=== PATIENT | male | born 1990 | race Caucasian/White ===

== ENCOUNTER 2017-10-02 13:57 | Emergency (ER) | payer OTHER ==
--- NOTE | 2017-10-02 15:35 | UC ---
Bite Injury/Animal HPI - HPI Summary HPI Summary: bats in BR twice in past week or so no known bite ? Last Td - History of Current Complaint Chief Complaint: UCGeneralIllness Stated Complaint: POST EXPOSURE RABIES VACINATION Time Seen by Provider: 10/02/17 15:33 Hx Obtained From: Patient Pain Intensity: 0 Pain Scale Used: 0-10 Numeric Onset/Duration: Other Type of Bite: Animal Has Animal Been Immunized?: N/A Animal Available for Observation: No Animal Control Notified: Yes - Allergies/Home Medications Allergies/Adverse Reactions: Allergies Allergy/AdvReac Type Severity Reaction Status Date / Time No Known Allergies Allergy Verified 10/02/17 14:14 Home Medications: Home Medications Albuterol HFA INHALER* [Ventolin HFA Inhaler*] 1 puff PO PRN 10/02/17 [History] Fexofenadine (NF) [Kathya 180 (NF)] 180 mg PO PRN 10/02/17 [History] PMH/Surg Hx/FS Hx/Imm Hx Previously Healthy: Yes Respiratory History: Asthma - Surgical History Surgical History: None - Family History Known Family History: Positive: Cardiac Disease, Hypertension, Diabetes - Social History Alcohol Use: Occasionally Substance Use Type: None Smoking Status (MU): Never Smoked Tobacco Review of Systems Constitutional: Negative Skin: Negative Eyes: Negative ENT: Negative Respiratory: Negative Cardiovascular: Negative Gastrointestinal: Negative Genitourinary: Negative Motor: Negative Neurovascular: Negative Musculoskeletal: Negative Neurological: Negative Psychological: Negative Is Patient Immunocompromised?: No All Other Systems Reviewed And Are Negative: Yes Physical Exam Triage Information Reviewed: Yes Appearance: Well-Appearing, No Pain Distress, Well-Nourished Vital Signs: Initial Vital Signs Temp 97.2 F 10/02/17 14:16 Pulse 68 10/02/17 14:16 Resp 16 10/02/17 14:16 BP 154/91 10/02/17 14:16 Pulse Ox 99 10/02/17 14:16 Vital Signs Reviewed: Yes Eyes: Positive: Conjunctiva Clear ENT: Positive: Hearing grossly normal. Negative: Trismus, Muffled voice, Hoarse voice Neck: Positive: Supple, Nontender Respiratory: Positive: Lungs clear, Normal breath sounds, No respiratory distress, No accessory muscle use Cardiovascular: Positive: RRR, No Murmur Musculoskeletal: Positive: ROM Intact, No Edema Neurological: Positive: Alert Psychological Exam: Normal Skin Exam: Normal Bite Injury Course/Dx - Differential Dx/Diagnosis Provider Diagnoses: rabies prophylaxis. bat exposure. high blood pressure without dx of hypertension Discharge - Discharge Plan Condition: Stable Disposition: HOME Patient Education Materials: Rabies Immune Globulin (By injection), Rabies Vaccine (ED) Referrals: Juan Szymanski MD [Primary Care Provider] - Additional Instructions: return as directed
[2017-10-02] MEDS ORDERED: Rabies VIRUS VACCINE (Imovax)* 2.5 UNIT/ML 1 ML IM ONE (15:45)
[2017-10-02] MEDS ORDERED: Tetan/Diph/Pertus SYR(Tdap)* 0.5 ML SYR(BOOSTRIX) use SYR IM ONE (15:45)
[2017-10-02] MEDS ORDERED: Rabies Immune Globulin 10 ML* 150 UNIT/ML VIAL IM ONE (15:55)
[2017-10-02 18:00] VITALS: BP 138/82
== END 2017-10-02 17:20 | disposition home or self-care (01) ==
LOC: UCEAST 13:57
DX: Z20.3 Contact with and (suspected) exposure to rabies (principal); R03.0 Elevated blood-pressure reading, without diagnosis of hypertension
CPT/HCPCS: 90375; 90471; 90472; 90715; 96372; 99211; G0463

== ENCOUNTER 2017-10-05 07:22 | Emergency (ER) | payer OTHER ==
[2017-10-05 07:39] VITALS: BP 128/78
[2017-10-05] MEDS ORDERED: Rabies VIRUS VACCINE (Imovax)* 2.5 UNIT/ML 1 ML IM ONE (07:47)
--- NOTE | 2017-10-05 07:57 | UC ---
General HPI - HPI Summary HPI Summary: Is coming for second dose of rabies vaccine. States he found bats in bedroom on October 01 and again on Oct 03, 2017. Denies any side effects. No other complaints - History of Current Complaint Chief Complaint: UCBiteInjury Stated Complaint: RABIES EXPOSURE Time Seen by Provider: 10/05/17 07:47 Hx Obtained From: Patient Onset/Duration: Sudden Onset Onset Severity: Mild Current Severity: Mild Pain Intensity: 0 - Allergy/Home Medications Allergies/Adverse Reactions: Allergies Allergy/AdvReac Type Severity Reaction Status Date / Time No Known Allergies Allergy Verified 10/05/17 07:39 Home Medications: Home Medications Albuterol HFA INHALER* [Ventolin HFA Inhaler*] 2 puff INH Q4H PRN 10/05/17 [ History Confirmed 10/05/17] Fexofenadine (NF) [Kathya 180 (NF)] 180 mg PO DAILY 10/05/17 [History Confirmed 10/05/17] PMH/Surg Hx/FS Hx/Imm Hx Previously Healthy: Yes - Surgical History Surgical History: None - Family History Known Family History: Positive: Cardiac Disease, Hypertension, Diabetes - Social History Alcohol Use: Occasionally Substance Use Type: None Smoking Status (MU): Never Smoked Tobacco Review of Systems Constitutional: Negative All Other Systems Reviewed And Are Negative: Yes Physical Exam Triage Information Reviewed: Yes Appearance: Well-Appearing Vital Signs: Initial Vital Signs Temp 97.0 F 10/05/17 07:34 Pulse 63 10/05/17 07:34 Resp 16 10/05/17 07:34 BP 128/78 10/05/17 07:34 Pulse Ox 98 10/05/17 07:34 Vital Signs Reviewed: Yes Eye Exam: Normal ENT Exam: Normal Neck exam: Normal Respiratory Exam: Normal Cardiovascular Exam: Normal Skin Exam: Normal Course/Dx - Course Course Of Treatment: Imovax dose 2 given. Information ALANA given for subsequent rabies vaccination - Differential Dx - Multi-Symptom Provider Diagnoses: History of rabies exposure. Imovax dose #2 Discharge - Discharge Plan Condition: Stable Disposition: HOME Patient Education Materials: Rabies Vaccine (ED) Referrals: Juan Szymanski MD [Primary Care Provider] -
== END 2017-10-05 08:06 | disposition home or self-care (01) ==
LOC: UCEAST 07:22
DX: Z20.3 Contact with and (suspected) exposure to rabies (principal); Z29.14 Encounter for prophylactic rabies immune globulin
CPT/HCPCS: 99211; G0463

== ENCOUNTER 2017-10-09 07:29 | Emergency (ER) | payer OTHER ==
[2017-10-09 07:43] VITALS: BP 152/63
[2017-10-09] MEDS ORDERED: Rabies VIRUS VACCINE (Imovax)* 2.5 UNIT/ML 1 ML IM ONE (08:11)
--- NOTE | 2017-10-09 08:15 | UC ---
Chalo Figueroa Angela, scribed for Britney Leal MD on 10/09/17 at 0813 . General HPI - HPI Summary HPI Summary: This pt is a 27 y/o male presenting to [facility] for a third dose of rabies vaccine, Day #7. Pt reports he was exposed to a bat 1 weeks ago but he states it is unknown if he was given bitten. Pt is working with [employer]. Denies fever, nausea, vomiting, or any other complaints. Pt has had local tenderness related to previous vaccines, but no systemic complaints. Pt without questions today. NKDA. Patients medication reviewed this visit. - History of Current Complaint Chief Complaint: UCBiteInjury Stated Complaint: RABIES EXPOSURE Hx Obtained From: Patient Onset/Duration: Lasting Weeks - was exposed to bat 2 weeks ago Current Severity: None Pain Intensity: 0 Aggravating: nothing Alleviating: nothing Associated Signs & Symptoms: Positive: Other - denies any complaints. Negative : Nausea, Vomiting - Allergy/Home Medications Allergies/Adverse Reactions: Allergies Allergy/AdvReac Type Severity Reaction Status Date / Time No Known Allergies Allergy Verified 10/09/17 07:36 PMH/Surg Hx/FS Hx/Imm Hx Previously Healthy: Yes Other Endocrine History: DENIES: diabetes Other Cardiovascular History: DENIES: hypertension - Surgical History Surgical History: None - Family History Known Family History: Positive: Cardiac Disease, Hypertension, Diabetes - Social History Occupation: Employed Full-time - radio station audio engineer Alcohol Use: Occasionally Substance Use Type: None Smoking Status (MU): Never Smoked Tobacco - Immunization History Most Recent Tetanus Shot: 10/02/17 Review of Systems Constitutional: Negative Skin: Negative Eyes: Negative ENT: Negative Respiratory: Negative Cardiovascular: Negative Gastrointestinal: Negative Genitourinary: Negative Motor: Negative Neurovascular: Negative Musculoskeletal: Negative Neurological: Negative Psychological: Negative Is Patient Immunocompromised?: No All Other Systems Reviewed And Are Negative: Yes Physical Exam Triage Information Reviewed: Yes Appearance: Well-Appearing, No Pain Distress, Well-Nourished Vital Signs: Initial Vital Signs Temp 98.1 F 10/09/17 07:37 Pulse 62 10/09/17 07:37 Resp 16 10/09/17 07:37 BP 152/63 10/09/17 07:37 Pulse Ox 97 10/09/17 07:37 Eye Exam: Normal Eyes: Positive: Conjunctiva Clear ENT Exam: Normal ENT: Positive: Normal ENT inspection, Hearing grossly normal, Pharynx normal, TMs normal Dental Exam: Normal Neck exam: Normal Neck: Positive: Supple, Nontender, No Lymphadenopathy Respiratory Exam: Normal Respiratory: Positive: Chest non-tender, Lungs clear, Normal breath sounds, No respiratory distress, No accessory muscle use Cardiovascular Exam: Normal Cardiovascular: Positive: RRR, No Murmur, Pulses Normal Abdominal Exam: Normal Abdomen Description: Positive: Nontender, No Organomegaly Bowel Sounds: Positive: Present Musculoskeletal Exam: Normal Musculoskeletal: Positive: Strength Intact Neurological Exam: Normal Neurological: Positive: Alert Psychological Exam: Normal Psychological: Positive: Normal Response To Family Skin Exam: Normal Course/Dx - Course Course Of Treatment: Pt presents for Day #7 rabies vaccine after a bat exposure. Pt with local discomfort, but no other adverse reactions to vaccine so far. Will give vaccine today. Pt to return Day #14. Pt without other quesitons or concerns - Differential Dx - Multi-Symptom Provider Diagnoses: rabies vaccine day #7 Discharge - Discharge Plan Condition: Stable Disposition: HOME Patient Education Materials: Rabies Vaccine (ED) Referrals: Juan Szymanski MD [Primary Care Provider] - Additional Instructions: You received your rabies vaccine #3 today. You are due for your next injection on 10/16/2017 You may develop some discomfort at the site of injection. This is normal Okay to take motrin or tylenol as needed for discomfort Contact your doctor, return here,or go to the emergency department with questions or concerns The documentation as recorded by the Chalo parker Angela accurately reflects the service I personally performed and the decisions made by , Britney Leal MD.
== END 2017-10-09 08:25 | disposition home or self-care (01) ==
LOC: UCEAST 07:29
DX: Z20.3 Contact with and (suspected) exposure to rabies (principal); Z29.14 Encounter for prophylactic rabies immune globulin
CPT/HCPCS: 90471; 99211; G0463

== ENCOUNTER 2017-10-16 07:11 | Emergency (ER) | payer OTHER ==
[2017-10-16] MEDS ORDERED: Rabies VIRUS VACCINE (Imovax)* 2.5 UNIT/ML 1 ML IM ONE (07:22)
[2017-10-16 07:24] VITALS: BP 139/75
--- NOTE | 2017-10-16 07:42 | UC ---
UC General HPI - HPI Summary HPI Summary: BAT EXPOSURE ABOUT 3 WEEKS AGO.WOKE UP WITH BAT IN ROOM. NO OBVIOUS BITE. PT HERE FOR 4TH RABIES VACCINE. HAS TOLERATED VACCINATIONS WELL. DENIES INJECTION SITE REACTION, NAUSEA, FEVER OR ANY OTHER SYMPTOMS. - History of Current Complaint Stated Complaint: RABIES POST EXPOSURE Time Seen by Provider: 10/16/17 07:17 Hx Obtained From: Patient Current Severity: None Pain Intensity: 0 - Allergy/Home Medications Allergies/Adverse Reactions: Allergies Allergy/AdvReac Type Severity Reaction Status Date / Time No Known Allergies Allergy Verified 10/16/17 07:24 PMH/Surg Hx/FS Hx/Imm Hx Respiratory History: Asthma - Surgical History Surgical History: None - Family History Known Family History: Positive: Cardiac Disease, Hypertension, Diabetes - Social History Alcohol Use: Occasionally Substance Use Type: None Smoking Status (MU): Never Smoked Tobacco - Immunization History Most Recent Tetanus Shot: 10/02/17 Review of Systems Constitutional: Negative Skin: Negative Respiratory: Negative Cardiovascular: Negative Gastrointestinal: Negative All Other Systems Reviewed And Are Negative: Yes Physical Exam Triage Information Reviewed: Yes Appearance: Well-Appearing, No Pain Distress, Well-Nourished Vital Signs: Initial Vital Signs Temp 95.9 F 10/16/17 07:21 Pulse 81 10/16/17 07:21 Resp 20 10/16/17 07:21 BP 139/75 10/16/17 07:21 Pulse Ox 96 10/16/17 07:21 Vital Signs Reviewed: Yes Eyes: Positive: Conjunctiva Clear ENT: Positive: Hearing grossly normal Neck: Positive: Supple Respiratory: Positive: No respiratory distress, No accessory muscle use Cardiovascular: Positive: Pulses Normal Abdomen Description: Positive: Soft Musculoskeletal: Positive: No Edema Neurological: Positive: Alert Psychological: Positive: Age Appropriate Behavior Skin: Negative: rashes Course/Dx - Differential Dx - Multi-Symptom Provider Diagnoses: RABIES VACCINATION Discharge - Discharge Plan Condition: Stable Disposition: HOME Patient Education Materials: Rabies Vaccine (ED) Referrals: Juan Szymanski MD [Primary Care Provider] - If Needed Additional Instructions: YOU RECEIVED YOUR 4TH AND FINAL DOSE OF THE RABIES VACCINATION SERIES TODAY. FOLLOW-UP WITH YOUR PCP OR CALL THE HEALTH DEPARTMENT IF YOU HAVE ANY QUESTIONS OR CONCERNS.
== END 2017-10-16 07:47 | disposition home or self-care (01) ==
LOC: UCEAST 07:11
DX: Z20.3 Contact with and (suspected) exposure to rabies (principal); Z23 Encounter for immunization; J45.909 Unspecified asthma, uncomplicated
CPT/HCPCS: 90471; 99211; G0463

== ENCOUNTER 2018-08-19 10:40 | Emergency (ER) | payer OTHER ==
[2018-08-19 10:54] VITALS: BP 139/84
--- NOTE | 2018-08-19 12:22 | UC ---
Head Injury HPI - HPI Summary HPI Summary: 28 y/o male presents to the urgent care c/o mild RICHMOND and light and sound sensitivity s/p head on collision w/ another player while playing Hockey last Saturday night 08/17/2018. Pt denies LOC when it happened, he finished playing since game was about to end. Yesterday he develops mild dizziness which resolved today. He has taking Ibuprofen 400mg PO to alleviate RICHMOND, but when he starts working in the computer RICHMOND is triggered. Today he feels sleepy. RICHMOND today is dull 3/10 localized in frontal area. Pt denies neck pain, SOB, chest pain, abdominal pain, N/V/D. - History Of Current Complaint Chief Complaint: UCHeadInjury Stated Complaint: HEAD INJURY Time Seen by Provider: 08/19/18 12:08 Hx Obtained From: Patient Onset/Duration: Sudden Onset, Lasting Days - 2 days, Still Present Severity Currently: Moderate Severity Initially: Mild Pain Intensity: 3 Pain Scale Used: 0-10 Numeric Character: Dull Aggravating Factor(s): Other - computer Alleviating Factor(s): Other - ibuprofen Associated Signs And Symptoms: Positive: Negative. Negative: LOC (Time In Secs. /Mins/Hrs), LOC Duration Unknown, Confusion, Memory Loss, Seizure, Epistaxis, Dental Malocclusion, Neck Pain, Nausea, Vomiting - Risk Factors SDH Risk Factor: Negative - Allergies/Home Medications Allergies/Adverse Reactions: Allergies Allergy/AdvReac Type Severity Reaction Status Date / Time No Known Allergies Allergy Verified 10/16/17 07:24 Home Medications: Home Medications Sertraline HCl [Zoloft] 50 mg PO DAILY WITH MEAL 08/19/18 [History Confirmed ] PMH/Surg Hx/FS Hx/Imm Hx Previously Healthy: Yes Respiratory History: Asthma - Surgical History Surgical History: None Surgery Procedure, Year, and Place: denies - Family History Known Family History: Positive: Cardiac Disease, Hypertension, Diabetes - Social History Occupation: Employed Full-time Lives: With Family Alcohol Use: Weekly Substance Use Type: None Smoking Status (MU): Never Smoked Tobacco - Immunization History Most Recent Tetanus Shot: 10/02/17 Review of Systems All Other Systems Reviewed And Are Negative: Yes Constitutional: Positive: Negative Skin: Positive: Negative Eyes: Positive: Photophobia - sesitivity to light and sound ENT: Positive: Negative Respiratory: Positive: Negative Cardiovascular: Positive: Negative Gastrointestinal: Positive: Negative Genitourinary: Positive: Negative Motor: Positive: Negative Neurovascular: Positive: Negative Musculoskeletal: Positive: Negative Neurological: Positive: Headache - mild Psychological: Positive: Negative Is Patient Immunocompromised?: No Physical Exam - Summary Physical Exam Summary: Vital signs: reviewed General: wel developed, well nourished male sitting in the examining table w/o any apparent pain or respiratory distress. Skin: [place], warm and dry, no surface trauma. HEENT: -Head: atraumatic, no palpable deformities, -Eyes: PERRLA and EOMI, no periorbital ecchymosis. -Ears: TMs clear, no hemotympanum or Battles sign. -Nose/Face: atraumatic, no septal hematoma. Facial bones symmetric, NT to palpation and stable with attempt at manipulation. -Mouth/Throat: no intraoral trauma, Teeth and mandible are intact. Neck: no point tenderness, step-off or deformity to firm palpation of the cervical spine at the midline. No spasm or paraspinal muscle tenderness. Trachea midline. Carotids equal. No masses. FROM without limitation or pain. Chest: no surface trauma or asymmetry. NT without crepitus or deformity. Normal tidal volume. CTA bilaterally. . Heart: RRR, no murmur, rub, or gallop. All peripheral pulses are intact and equal. Abd: nondistended without abrasions or ecchymosis. Bowel sounds are active. NT , guarding or rebound. No masses. Good femoral pulses. Back: no contusions, ecchymosis, or abrasions are noted, NT, without step-off or deformity to firm palpation of the thoracic and lumbar spine. Rectal: Normal tone. No rectal wall tenderness or mass. Stool is brown and heme negative (if applicable) Extrems: no surface trauma. FROM. Distal motor, neuromuscular supply is intact. Neuro: A&O x4, GCS 15, CN II-XII grossly intact. Motor and sensory exam nonfocal. Reflexes are symmetric. Speech is clear and gait steady. Triage Information Reviewed: Yes Vital Signs: Initial Vital Signs Temp 97.3 F 08/19/18 10:49 Pulse 53 08/19/18 10:49 Resp 18 08/19/18 10:49 BP 139/84 12/18/18 10:49 Pulse Ox 100 08/19/18 10:49 Head Injury Course/Dx - Course Course Of Treatment: 28 y/o male presents to the urgent care c/o mild RICHMOND and light and sound sensitivity s/p head on collision w/ another player while playing Hockey last Saturday night 08/17/2018. Pt denies LOC when it happened, he finished playing since game was about to end. Yesterday he develops mild dizziness which resolved today. He has taking Ibuprofen 400mg PO to alleviate RICHMOND , but when he starts working in the computer RICHMOND is triggered. Today he feels sleepy. RICHMOND today is dull 3/10 localized in frontal area. Pt denies neck pain, SOB, chest pain, abdominal pain, N/V/D. Hx obtained. PE: WNL,A&O x4, GCS 15, CN II-XII grossly intact. Motor and sensory exam nonfocal. Reflexes are symmetric. Speech is clear and gait steady. no AMS or hematoma observed on exam. Neurologic exam is WNL. Pt is playful and interacts normally w/ provider. According to [facility] criteria there is not recommendation for brain CT. Pt explained criteria and he agrees. Pt advised to take Tylenol PO and close observation and brain rest as directed below. He was advised to f/u w/ his PCP mild RICHMOND, and photosensitivity persist for further evaluation and treatment. D/ C instructions explained. Pt understood and agreed w/ plan of care. Pt left clinic hemodynamically stable, ambulating and A&OX4 - Differential Dx/Diagnosis Differential Diagnosis/HQI/PQRI: Cerebral Contusion, Cervical Sprain, Contusion , Hematoma, Orbital Fracture, Skull Fracture Provider Diagnosis: Head contusion Discharge - Sign-Out/Discharge Documenting (check all that apply): Patient Departure - d/c home All imaging exams completed and their final reports reviewed: No Studies - Discharge Plan Condition: Stable Disposition: HOME Patient Education Materials: Acute Headache (ED), Post Concussion Syndrome (ED) Forms: *Work Release Referrals: Juan Szymanski MD [Primary Care Provider] - 1 Week Additional Instructions: 1-Please take Tylenol PO q6-8hrs prn as instructed after meals to alleviate Headache. Increase fluid intake, eat well, rest and avoid strenuous exercise. 2-If symptoms worsen and you develop vomiting, dizziness w/ severe RICHMOND please go immediately to the ER for further management 4- Rest your brain, avoid watching videos or movies or work in the computer for long period or time. If RICHMOND continue to be mild please f/u w/ your PCP for further management - Billing Disposition and Condition Condition: STABLE Disposition: Home
== END 2018-08-19 13:02 | disposition home or self-care (01) ==
LOC: UCEAST 10:40
DX: S00.93XA Contusion of unspecified part of head, initial encounter (principal); J45.909 Unspecified asthma, uncomplicated; W51.XXXA Accidental striking against or bumped into by another person, initial encounter; Y92.9 Unspecified place or not applicable
CPT/HCPCS: 99211; G0463